=== PATIENT | female | born 1940 | race Caucasian/White ===

== ENCOUNTER → 2017-10-18 | Day surgery (SDC) | payer OTHER, MEDICARE ==
[~2017-10-18] VITALS: Ht 157.5 cm; Wt 53.1 kg
[~2017-10-18] MED LIST: ATORVASTATIN CA20 M1 PO; COZAAR100 M1 PO; LEVOTHYROXINE25 MCG PO; MULTIVITAMINS1 EAC9 PO; NORVASC5 M1 PO; SERTRALINE HCL25 MG PO; VITAMIN D2000 UNIT PO
--- NOTE | 2017-10-18 17:22 | Operative Report ---
Operative/Inv Procedure Report Surgery Date: 10/18/17 Name of Procedure: Cystocele repair with mesh and cystoscopy with urethral sling placement Pre-Operative Diagnosis: Cystoce, uterine prolapse and stress urinary incontinence Post-Operative Diagnosis: Same Estimated Blood Loss: scant (200cc) Surgeon/Penetration Tester: Ilene Galvez MD Anesthesia: laryngeal mask airway Implants: Vaginal mesh Drains: 16 Malay Saucedo Complications: None Condition: Table Operative Indication: Cystocele, uterine prolapse and stress urinary incontinence Operative/Procedure Note Note: This 77-year-old female with a history of vaginal bulge over his very bothersome. She was not interested and pessary management. She was given the risks benefits and alternatives of vaginal prolapse repair with without mesh and abdominal approach. All questions were answered in the office as well as the holding area. She was very eager to have it remedied. Consent was signed. The details of using vaginal mesh were reiterated and she wished to proceed. Patient was taken to the operating placed on the operating table in supine position. Timeout was performed. IV antibiotics were infused. Gen. anesthesia with LMA was begun and the patient was placed in the dorsal lithotomy position. She was prepped and draped in the standard sterile fashion after shaving the genitalia. Saucedo catheter was placed and the [place] retractor with 6 stay hooks were placed for optimal elevation. The uterine prolapse was greater than anticipated as is seen in the office it was a grade 2 with the patient relaxed in the OR was bordering on grade 3-4. She was not consented for vaginal hysterectomy so the original surgery was performed. 1% lidocaine was infiltrated into the anterior vaginal wall from the bladder neck to the cervical edge. The vaginal wall was dissected free from the prolapsed bladder with sharp and blunt dissection. Care was taken not to injure the bladder. The retropubic space was entered and dissected free from the bladder neck down to the sacrospinous process on the right and left side. The then Used to place was then used to place 0 Prolene sutures at the level of the bladder neck on the right and left side as well at the sacrospinous ligament on the right and left side. Methylene blue had been given prior to the start of the case to check the patency of the ureters at a later time. The mesh was then placed using the Prolene sutures along with stay sutures at the bladder neck and proximally at the cervix. The Prolene sutures were tied down and the mesh nicely reduced the cystocele and uterine prolapse. Cystoscopy was performed and the bladder was globally inspected. Ureteral orifices were identified and good efflux was seen from both ureters. The anterior vaginal wall was then closed with interrupted 2 -0 Vicryl sutures. Attention was then turned to the sling portion of the case. 1% lidocaine was infiltrated into the anterior vaginal wall beneath the urethra. Incision was made approximately 2 inches in length and the vaginal flaps are created taking care not to injure the urethra. The ALTIS SLING kit was then opened and the trochars provided used to place the sling in a flat tension-free orientation. The [place] was placed between the urethra and the sling when the Prolene stitch was tightened. No seen to be in a good flat tension-free orientation the Prolene suture was cut. There was grossly irrigated with bacitracin irrigation. Incision was closed with 3-0 Vicryl interrupted every third suture. There was no mesh in the vaginal fornices. A cystoscopy was performed and there is no bladder and the mesh were the urethra. 2 inch vaginal packing impregnated with bacitracin ointment was placed in the vaginal vault. Saucedo catheter was placed and attached to a leg bag area sponge and needle count were correct at the end of the case. Findings: No mesh in the bladder, urethra or vaginal fornices. Good ureteral efflux from both ureters. Discharge Disposition: PACU
== END ==
LOC: STS 01:52
DX: N39.3 Stress incontinence (female) (male) (principal); N81.2 Incomplete uterovaginal prolapse; I10 Essential (primary) hypertension; E03.9 Hypothyroidism, unspecified; M19.90 Unspecified osteoarthritis, unspecified site
CPT/HCPCS: C1771; J0131; J0744; J1100; J2210; J2405